=== PATIENT | female | born 1995 | race African-American/Black ===

== ENCOUNTER 2019-03-18 08:46 | Emergency (ER) | payer MEDICAID ==
[~2019-03-18] VITALS: Ht 167.6 cm; Wt 56.0 kg
[2019-03-18] MEDS ORDERED: KETOROLAC 30MG/ML VIAL IV STA (09:11)
[2019-03-18] MEDS ORDERED: ONDANSETRON HCL 4MG/2ML INJ IV STA ×2 (09:11→10:27)
[2019-03-18] MEDS ORDERED: SODIUM CHLORIDE 0.9% 1,000 ML IV ONE (09:11)
[2019-03-18 09:44] LABS: HEMATOCRIT. 37.8 % (36.0-48.0); HEMOGLOBIN. 12.7 g/dL (12.0-16.0); MEAN CORPUSCULAR HEMOGLOBIN 30.8 pg (28.0-32.0); MEAN CORPUSCULAR VOLUME 91.6 fL (81.0-99.0); PLATELET 415 x1000/uL (130-400); RED BLOOD CELL COUNT 4.12 mill/uL (4.2-5.4); RED CELL DISTRIBUTION WIDTH 14.4 % (11.6-14.6)
[2019-03-18 09:49] LABS: CHLORIDE 105 mEq/L (98-107); INR 1.3
[2019-03-18 09:53] LABS: ETHANOL BLOOD < 10 mg/dL
[2019-03-18] MEDS ORDERED: LORAZEPAM 2MG/ML CPJ IV ONE (10:00)
[2019-03-18 10:19] LABS: PLATELET ESTIMATE INCREASED
[2019-03-18 10:27] LABS: HCG SCREEN POSITIVE
[2019-03-18] MEDS ORDERED: MORPHINE SULFATE 4 MG/ML CPJ (NOT FOR IM USE) IV STA (10:27)
[2019-03-18] MEDS ORDERED: POTASSIUM CHLORIDE 20MEQ TABLET SR PO ONE (11:30)
[2019-03-18] MEDS ORDERED: HYDROCODONE/ACETAMINOPHEN 5/325MG TABLET PO ONE (11:30)
[2019-03-18 13:58] VITALS: BP 126/80
[2019-03-18] MEDS ORDERED: ONDANSETRON HCL 4MG/2ML INJ IM ONE (14:15)
== END 2019-03-18 15:21 | disposition home or self-care (01) ==
LOC: ER 08:46
DX: N30.00 Acute cystitis without hematuria (principal); E87.6 Hypokalemia
CPT/HCPCS: 36415; 74176; 80053; 80320; 83690; 84702; 84703; 85025; 85610; 96361; 96372; 96374; 96375; 99284; J1885; J2060; J2270; J2405; J7030; Z7610; G0480